=== PATIENT | female | born 1955 | race Native Hawaiian/Other Pacific Islander ===

== ENCOUNTER 2017-07-16 11:04 | Outpatient (CLI) | payer BC | END 2017-07-16 19:07 | disposition home or self-care (01) | LOC: NM 11:04 | DX: R10.11 Right upper quadrant pain (principal) | CPT/HCPCS: A9537 ==

== ENCOUNTER 2018-06-25 10:53 | Outpatient (CLI) | payer BC | END 2018-06-25 22:07 | disposition home or self-care (01) | LOC: RAD 10:53 | DX: Z01.89 Encounter for other specified special examinations (principal) ==

== ENCOUNTER 2019-05-05 13:35 | Outpatient (CLI) | payer BC | END 2019-05-05 20:22 | disposition home or self-care (01) | LOC: MAMMO 13:35 | DX: R92.1 Mammographic calcification found on diagnostic imaging of breast (principal) ==

== ENCOUNTER 2021-02-22 09:14 | Outpatient (CLI) | payer OTHER | END 2021-02-22 20:08 | disposition home or self-care (01) | LOC: MAMMO 09:14 | PROVIDERS: ATTEND Nurse Practitioner Family | DX: Z12.31 Encounter for screening mammogram for malignant neoplasm of breast (principal) ==

== ENCOUNTER 2021-08-14 08:41 | Outpatient (CLI) | payer OTHER | END 2021-08-14 18:58 | disposition home or self-care (01) | LOC: US 08:41 | PROVIDERS: ATTEND Nurse Practitioner | DX: R10.13 Epigastric pain (principal) ==

== ENCOUNTER 2023-01-24 14:04 | Outpatient (CLI) | payer OTHER | END 2023-01-24 20:02 | disposition home or self-care (01) | LOC: MAMMO 14:04 | PROVIDERS: ATTEND Nurse Practitioner | DX: Z12.31 Encounter for screening mammogram for malignant neoplasm of breast (principal); Z13.820 Encounter for screening for osteoporosis; N95.8 Other specified menopausal and perimenopausal disorders ==